=== PATIENT | male | born 1965 | race Caucasian/White ===

== ENCOUNTER 2018-12-07 13:04 | Emergency (ER) | payer BC, MEDICARE ==
[~2018-12-07] VITALS: Ht 182.9 cm; Wt 85.9 kg
[2018-12-07] MEDS ORDERED: OXAY1TAB PO (13:14)
[2018-12-07] MEDS ORDERED: TIZA2CAP PO (13:14)
[2018-12-07] MEDS ORDERED: LEVO150T7 PO (13:14)
[2018-12-07] MEDS ORDERED: ESZO1TAB6 PO (13:14)
[2018-12-07] MEDS ORDERED: FLUO20CA8 PO (13:14)
[2018-12-07] MEDS ORDERED: IBUP-1022 PO (13:14)
[2018-12-07] MEDS ORDERED: MEDR4PAK PO (17:45)
[2018-12-07] MEDS ORDERED: dexameTHASONE 4 MG/ML 1ML VIAL (J1100) IM ONE (17:45)
[2018-12-07 18:03] VITALS: BP 134/71
--- NOTE | 2018-12-07 21:05 | REP ---
CT LUMBAR SPINE WITHOUT CONTRAST: HISTORY: Back pain. A diffuse disc bulge is present at the L1-2 level. There is 3 mm of retrolisthesis of L1 on 2. There is minimal compression of the thecal sac. The L1 nerves exit the neural foramina without compression. A diffuse disc bulge is present at the L2-3 level. There is minimal compression of the thecal sac. The L2 nerves exit the neural foramina without compression. A diffuse disc bulge is present at the L2-3 level. There is minimal compression of the thecal sac. The L2 nerves exit the neural foramina without compression. A diffuse disc bulge is present at the L3-4 level. There is minimal compression of the thecal sac. The L3 nerves exit the neutral foramina without compression. A diffuse disc bulge is present at the L4-5 level. There is minimal compression of the thecal sac. There is hypertrophy of the posterior articulating facets. There is compression at the L4 nerves in the neural foramina. A diffuse disc bulge is present at the L5-S1 level. There is minimal compression of the thecal sac. There is hypertrophy of the posterior articulating facets. There is compression of the right L5 nerve in the neural foramen. The left L5 nerve exits the neural foramina without compression. The L1-2, L4-5 and L5-S1 intervertebral discs are decreased in height consistent with disc degeneration. IMPRESSION: 1. diffuse disc bulge and retrolisthesis at the L1-2 level with minimal thecal sac compression. 2. Diffuse disc bulges at the L2-3 through L5-S1 levels with minimal thecal sac compression. There is compression of the L4 and right L5 nerves in the neural foramina. Electronically Signed by Juanito Malhotra MD 12/08/2018 08:02 A
== END 2018-12-07 18:07 | disposition home or self-care (01) ==
LOC: M ED 13:04
DX: M51.27 Other intervertebral disc displacement, lumbosacral region (principal); M54.17 Radiculopathy, lumbosacral region; E03.9 Hypothyroidism, unspecified; F41.9 Anxiety disorder, unspecified; F32.9 Major depressive disorder, single episode, unspecified; Z96.9 Presence of functional implant, unspecified; Z88.0 Allergy status to penicillin; Z79.899 Other long term (current) drug therapy
CPT/HCPCS: 72131; 96372; 99283; J1100